=== PATIENT | male | born 1995 | race Asian ===

== ENCOUNTER 2018-05-13 17:05 | Emergency (ER) | payer OTHER ==
[~2018-05-13] VITALS: Ht 175.3 cm; Wt 77.1 kg
[2018-05-13 17:09] VITALS: Ht 175.3 cm; Wt 77.1 kg
[2018-05-13 19:18] VITALS: BP 125/73
== END 2018-05-13 19:18 | disposition home or self-care (01) ==
LOC: ED 17:05
DX: S91.011A Laceration without foreign body, right ankle, initial encounter (principal); S97.81XA Crushing injury of right foot, initial encounter; S60.512A Abrasion of left hand, initial encounter; X58.XXXA Exposure to other specified factors, initial encounter; Y93.89 Activity, other specified; Y92.89 Other specified places as the place of occurrence of the external cause; Y99.8 Other external cause status
CPT/HCPCS: 90715; J2001; Q0092